=== PATIENT | female | born 1975 | race Caucasian/White ===

== ENCOUNTER 2019-05-13 12:16 | Emergency (ER) | payer MEDICAID, OTHER ==
[~2019-05-13] VITALS: Ht 165.1 cm; Wt 70.3 kg
--- NOTE | 2019-05-13 13:12 | NUR ---
Dr Carreon at the bedside for MSE.
[2019-05-13] MEDS ORDERED: IV NORMAL SALINE 1000 ML BAG IV ONE (13:15)
[2019-05-13 13:33] LABS: CREATININE 0.8 mg/dL (0.6-1.3); POTASSIUM 3.6 mmol/L (3.5-5.1)
[2019-05-13 13:39] LABS: BILIRUBIN,DIRECT 13.9 mg/dL (0.0-0.2); TOTAL PROTEIN, SERUM 9.3 g/dL (6.4-8.2)
[2019-05-13 13:45] LABS: BASOPHILS # (AUTO) 0.1 K/uL (0.0-8.0); BASOPHILS % (AUTO) 0.8 % (0.0-2.0); EOSINOPHILS % (AUTO) 0.3 % (0.0-7.0); HEMATOCRIT 29.7 % (31.2-41.9); HEMOGLOBIN 10.2 g/dL (10.9-14.3); LYMPHOCYTES # (AUTO) 1.1 K/uL (20.0-40.0); LYMPHOCYTES % (AUTO) 15.9 % (20.5-51.5); MEAN CORPUSCULAR HEMOGLOBIN 39.6 uug (24.7-32.8); MEAN CORPUSCULAR HGB CONC 34 g/dL (32.3-35.6); MEAN CORPUSCULAR VOLUME 115.5 fL (75.5-95.3); MONOCYTES # (AUTO) 0.6 K/uL (2.0-10.0); MONOCYTES % (AUTO) 8.8 % (0.0-11.0); NEUTROPHILS # (AUTO) 5.2 K/uL (1.8-8.9); NEUTROPHILS % (AUTO) 74.2 % (38.5-71.5); PLATELET COUNT (AUTO) 93 K/uL (179-408); RED BLOOD CELL COUNT(AUTO) 2.57 MIL/uL (3.63-4.92)
--- NOTE | 2019-05-13 14:34 | NUR ---
Recieved a call from [facility].
--- NOTE | 2019-05-13 14:47 | NUR ---
ER spoke to Dr Sherwood from [place], awaiting info for transfer.
--- NOTE | 2019-05-13 16:04 | NUR ---
Patient is resting comfortably in bed with eyes closed, NAD noted.
--- NOTE | 2019-05-13 19:04 | NUR ---
REPORT GIVEN TO [facility], [facility] [place] [facility].ALL BELONGINGS SENT W/ PT AND FAMILY.
[2019-05-14 09:09] LABS: HEPATITIS A AB, IgM Negative (Negative); HEPATITIS A AB, TOTAL Positive (Negative); HEPATITIS B SURFACE AB Non Reactive (.); HEPATITIS B SURFACE AG Negative (Negative)
[2019-05-15 08:09] LABS: HEPATITIS Be ANTIGEN Negative (Negative)
== END 2019-05-13 19:08 | disposition short-term general hospital (02) ==
LOC: ER 12:16 → UNDOADMIN 18:26 → MEDSURG3 18:26 → ER 19:08
DX: K72.00 Acute and subacute hepatic failure without coma (principal); E80.6 Other disorders of bilirubin metabolism; K74.60 Unspecified cirrhosis of liver; R18.8 Other ascites; F10.10 Alcohol abuse, uncomplicated
CPT/HCPCS: 36415; 76700; 83690; 85025; 85730; 86704; 86705; 86706; 86708; 86709; 86803; 87340; 87350; A4663; J7030